=== PATIENT | female | born 1970 | race Caucasian/White ===

== ENCOUNTER → 2021-08-24 | Outpatient (CLI) | payer OTHER ==
--- NOTE | 2021-08-24 10:41 | RAD ---
EXAM: Pelvic sonogram. HISTORY: IUD placement. TECHNIQUE: Transvaginal sonographic imaging of the pelvis was performed. COMPARISON: None. FINDINGS: The uterus measures 8.6 x 6.4 x 5.6 cm. There is an intrauterine contraceptive device in ex pected position within the endometrial cavity. There are uterine fibroids within the superior uterine fundus measuring 2.4 cm and 1.6 cm. The larger fibroid may be submucosal. There is nabothian cyst wi thin the cervix. There are prominent adnexal vessels. The right ovary is normal in size and demonstra te normal blood flow. There is a 3.7 cm simple appearing right ovarian cyst. The left ovary is obscur ed. No left adnexal mass or cyst is seen. There is no pelvic free fluid. IMPRESSION: 1. IUD in expected position. 2. Uterine fibroids measuring 2.4 cm and 1.6 cm, the larger of which may be submucosal. 3. 3.7 cm simple appearing right ovarian cyst. Given the reported premenopausal status of the patient , follow-up in 2-3 months is recommended to confirm resolution. 4. Obscured left ovary. 5. Nabothian cyst within the cervix. 6. Prominent bilateral adnexal vessels. Correlate for possible pelvic congestion. Electronically signed by: Pinky Travis MD (08/24/2021 10:39 AM) [id number]
== END ==
LOC: US 09:50
PROVIDERS: ATTEND Family Medicine
DX: D25.0 Submucous leiomyoma of uterus (principal); N88.8 Other specified noninflammatory disorders of cervix uteri; N93.9 Abnormal uterine and vaginal bleeding, unspecified; N83.201 Unspecified ovarian cyst, right side
CPT/HCPCS: 76830